=== PATIENT | female | born 1945 | race Caucasian/White ===

== ENCOUNTER → 2018-02-12 15:20 | Outpatient (CLI) | payer MEDICARE, OTHER, SELFPAY | PROVIDERS: Family Provider Family Medicine; PCP Family Medicine; Visit Provider Physician Assistant | DX: R30.0 Dysuria (principal) | CPT/HCPCS: 87086 ==

== ENCOUNTER → 2018-08-02 10:30 | Outpatient (CLI) | payer MEDICARE, OTHER, SELFPAY ==
--- NOTE | 2018-08-02 | DI.MG.S_ITS ---
BILATERAL DIGITAL SCREENING MAMMOGRAM 3D/2D WITH CAD: 08/02/2018 CLINICAL: Routine screening. Family history of breast cancer. Comparison is made to exams dated: 07/09/2017 mammogram, 06/25/2016 mammogram, and 06/24/2015 mammogram - [facility]. There are scattered fibroglandular elements in both breasts. Current study was also evaluated with a Computer Aided Detection (CAD) system. No significant masses, calcifications, or other findings are seen in either breast. There has been no significant interval change. IMPRESSION: NEGATIVE There is no mammographic evidence of malignancy. A 1 year screening mammogram is recommended. NOTE: For mammograms, a report in lay terms will be sent to the patient. Approximately 15% of breast malignancies will not be visualized mammographically. In the management of a palpable breast mass, a negative mammogram must not discourage biopsy of a clinically suspicious lesion. Electronically Signed By: Madeline birmingham/warner:08/03/2018 12:11:23 letter sent: Normal Exam ACR BI-RADS Category 1: Negative 3341F
== END ==
PROVIDERS: Family Provider Family Medicine; PCP Family Medicine; Visit Provider Family Medicine
DX: Z12.31 Encounter for screening mammogram for malignant neoplasm of breast (principal); Z80.3 Family history of malignant neoplasm of breast
CPT/HCPCS: 77063; 77067

== ENCOUNTER → 2018-08-03 08:18 | Outpatient (CLI) | payer MEDICARE, OTHER, SELFPAY ==
[2018-08-03 09:38] LABS: Add Manual Diff / Slide Review NO; Basophils Percent Auto 0.7 % (0-2); Eosinophils Percent Auto 1.3 % (2-4); Hematocrit 42.8 % (36-46); Hemoglobin 14.4 g/dL (12.0-16.0); Lymphocytes Percent Auto 34.2 % (25-40); Mean Corpuscular HGB Conc 33.7 % (30-36); Mean Corpuscular Hemoglobin 28.6 PG (26-34); Mean Corpuscular Volume 84.8 fL (80-100); Monocytes Percent Auto 10.7 % (3-14); Neutrophils Absolute Auto 2600 /uL (3000-5900); Neutrophils Percent Auto 53.1 % (50-75); Platelet Count 256 X10^3/uL (150-400); Red Blood Cell Count 5.04 X10^6/uL (4.0-5.2); Red Cell Distribution Width 14.2 % (11.6-14.8); White Blood Cell Count 4.8 X10^3/uL (4.5-11.0)
[2018-08-03 16:18] LABS: Alanine Aminotransferase 16 IU/L (9-52); Albumin 4.4 g/dL (3.5-5.0); Albumin Globulin Ratio 1.6 (1.0-2.8); Alkaline Phosphatase 87 U/L (38-126); Aspartate Aminotransferase 23 IU/L (14-36); BUN Creatinine Ratio 23.8 (6-22); Bilirubin Total 0.9 mg/dL (0.2-1.3); Blood Urea Nitrogen 19 mg/dL (7-17); Calcium 9.4 mg/dL (8.4-10.2); Carbon Dioxide 27 mmol/L (22-32); Chloride 105 mmol/L (98-107); Cholesterol 183 mg/dL (140-199); Estimated Glomerular Filt Rate > 60.0 mL/min (>60); Globulin 2.7 g/dL (1.7-4.1); Glucose 94 mg/dL (80-110); HDL Cholesterol 47 mg/dL (40-60); HEMOLYSIS < 15 (0-50); LDL Cholesterol Calculated 115 mg/dL (<100); Potassium 3.8 mmol/L (3.4-5.1); Sodium 143 mmol/L (137-145); Total Protein 7.1 g/dL (6.3-8.2); Triglycerides 106 mg/dL (35-150)
== END ==
PROVIDERS: Family Provider Family Medicine; PCP Family Medicine; Visit Provider Family Medicine
DX: G24.9 Dystonia, unspecified (principal); I10 Essential (primary) hypertension
CPT/HCPCS: 36415; 80053; 80061; 85025

== ENCOUNTER → 2019-06-30 13:35 | Outpatient (CLI) | payer MEDICARE, OTHER, SELFPAY ==
--- NOTE | 2019-06-30 13:38 | DI.RAD.S_ITS ---
PROCEDURE: XR RIBS RT MIN 3V W CXR 1V INDICATIONS: Fall, rib contusion, rule out fracture TECHNIQUE: 2 views of the right ribs were acquired, along with a single view chest. COMPARISON: None. FINDINGS: Surgical changes and devices: Bilateral nerve stimulators overlie the chest bilaterally, leading cephalad along the cervical margins directed towards the cranial base.. Bones and chest wall: No fractures or dislocations. No suspicious bony lesions. Overlying soft tissues appear unremarkable. Lungs and pleura: No pleural effusions or pneumothorax. Lungs appear clear. Mediastinum: Mediastinal contours appear normal. Heart size is normal. IMPRESSION: Expected positioning of presumed nerve stimulators over the chest bilaterally, with leads directed cephalad above the uppermost imaging margin. No trauma found. On the oblique views of the ribs mild patient breathing motion is present, blurring quality of the visualization. Delayed plain films may be warranted. Dictated by: Tan Royal M.D. on 06/30/2019 at 14:07 Approved by: Tan Royal M.D. on 06/30/2019 at 14:09
== END ==
PROVIDERS: Family Provider Family Medicine; PCP Family Medicine; Visit Provider Physician Assistant
DX: S20.219A Contusion of unspecified front wall of thorax, initial encounter (principal); R07.81 Pleurodynia; W19.XXXA Unspecified fall, initial encounter; Z96.82 Presence of neurostimulator
CPT/HCPCS: 71101

== ENCOUNTER → 2019-07-18 17:16 | Outpatient (CLI) | payer MEDICARE, OTHER, SELFPAY | PROVIDERS: Family Provider Family Medicine; PCP Family Medicine; Visit Provider Physician Assistant | DX: N30.01 Acute cystitis with hematuria (principal) | CPT/HCPCS: 87077; 87086; 87186 ==

== ENCOUNTER → 2019-08-04 13:40 | Outpatient (CLI) | payer MEDICARE, OTHER, SELFPAY ==
--- NOTE | 2019-08-04 | DI.MG.S_ITS ---
BILATERAL DIGITAL SCREENING MAMMOGRAM 3D/2D WITH CAD: 08/04/2019 CLINICAL: Routine screening. Family history of breast cancer. Comparison is made to exams dated: 08/02/2018 mammogram, 07/09/2017 mammogram, and 06/25/2016 mammogram - [facility]. There are scattered fibroglandular elements in both breasts. Current study was also evaluated with a Computer Aided Detection (CAD) system. No significant masses, calcifications, or other findings are seen in either breast. There has been no significant interval change. IMPRESSION: NEGATIVE There is no mammographic evidence of malignancy. A 1 year screening mammogram is recommended. This exam was interpreted at Station ID: [id number]. NOTE: For mammograms, a report in lay terms will be sent to the patient. Approximately 15% of breast malignancies will not be visualized mammographically. In the management of a palpable breast mass, a negative mammogram must not discourage biopsy of a clinically suspicious lesion. Electronically Signed By: Pascual hernandez/warner:08/07/2019 11:44:40 letter sent: Normal Exam ACR BI-RADS Category 1: Negative 3341F
== END ==
PROVIDERS: PCP Family Medicine; Visit Provider Family Medicine
DX: Z12.31 Encounter for screening mammogram for malignant neoplasm of breast (principal); Z80.3 Family history of malignant neoplasm of breast
CPT/HCPCS: 77063; 77067

== ENCOUNTER → 2019-09-08 12:24 | Outpatient (CLI) | payer MEDICARE, OTHER, SELFPAY ==
[2019-09-08 12:52] LABS: Appearance Urine UA CLEAR; Bilirubin Urine UA NEGATIVE (NEGATIVE); Color Urine UA YELLOW; Glucose Urine UA NEGATIVE (Negative); Ketones Urine UA NEGATIVE (NEGATIVE); Leukocyte Esterase Urine UA NEGATIVE (NEGATIVE); Nitrite Urine UA NEGATIVE (Negative); Occult Blood Urine UA NEGATIVE (Negative); Protein Urine UA NEGATIVE (Negative); Urobilinogen Urine UA 0.2 E.U./dL (0.2)
== END ==
PROVIDERS: PCP Family Medicine; Visit Provider Family Medicine
DX: R32 Unspecified urinary incontinence (principal)
CPT/HCPCS: 81003

== ENCOUNTER → 2019-11-03 15:18 | Outpatient (CLI) | payer MEDICARE, OTHER, SELFPAY ==
--- NOTE | 2019-11-03 15:20 | DI.RAD.S_ITS ---
PROCEDURE: XR HIP W PEL IF DONE RT 2V INDICATIONS: RIGHT Hip pain TECHNIQUE: AP pelvis with lateral view(s) of the right hip(s). COMPARISON: None. FINDINGS: Bones: No fractures or dislocations. Pelvic ring appears intact. No suspicious bony lesions. Soft tissues: The visualized bowel gas pattern is normal. No suspicious soft tissue calcifications. IMPRESSION: 1. No definitive fracture. If clinical symptoms persist or clinical suspicion for pathology is high, advanced imaging such as CT or MRI is suggested for further evaluation. 2. 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 Dictated by: Luis Fernando Seymour M.D. on 11/03/2019 at 17:57 Approved by: Luis Fernando Seymour M.D. on 11/03/2019 at 17:59
== END ==
PROVIDERS: PCP Family Medicine; Referring Provider Family Medicine; Visit Provider Family Medicine
DX: M25.551 Pain in right hip (principal); M16.0 Bilateral primary osteoarthritis of hip; M47.818 Spondylosis without myelopathy or radiculopathy, sacral and sacrococcygeal region
CPT/HCPCS: 73502

== ENCOUNTER → 2019-11-21 09:56 | Outpatient (CLI) | payer MEDICARE, OTHER, SELFPAY ==
[2019-11-21 13:02] LABS: Appearance Urine UA CLOUDY; Bilirubin Urine UA NEGATIVE (NEGATIVE); Color Urine UA YELLOW; Glucose Urine UA NEGATIVE (Negative); Ketones Urine UA NEGATIVE (NEGATIVE); Leukocyte Esterase Urine UA 3+ (NEGATIVE); Nitrite Urine UA NEGATIVE (Negative); Occult Blood Urine UA 2+ (Negative); Protein Urine UA NEGATIVE (Negative); Specific Gravity Urine UA 1.015 (1.000-1.035); Urobilinogen Urine UA 0.2 E.U./dL (0.2)
[2019-11-21 13:10] LABS: pH Urine UA 5.5 (4.5-8.0)
[2019-11-21 13:15] LABS: Bacteria Urine Few (2-10); Culture Indicated Urine Specimen Cultured; RBC Urine 1-5/HPF (0-5/HPF); Squamous Epithelial Cell Urine 1-5 /HPF (0-5/HPF); WBC Urine >100/HPF (0-5/HPF)
== END ==
PROVIDERS: Family Medicine; PCP Family Medicine; Referring Provider Family Medicine; Visit Provider Family Medicine
DX: R39.89 Other symptoms and signs involving the genitourinary system (principal)
CPT/HCPCS: 81001; 87077; 87086; 87186

== ENCOUNTER → 2020-01-17 12:43 | Outpatient (CLI) | payer MEDICARE, OTHER, SELFPAY ==
[2020-01-17 12:50] LABS: Bacteria Urine None Seen; RBC Urine None Seen (0-5/HPF); WBC Urine None Seen (0-5/HPF)
[2020-01-17 13:32] LABS: Appearance Urine UA CLEAR; Bilirubin Urine UA NEGATIVE (NEGATIVE); Color Urine UA YELLOW; Glucose Urine UA NEGATIVE (Negative); Ketones Urine UA TRACE (NEGATIVE); Leukocyte Esterase Urine UA NEGATIVE (NEGATIVE); Nitrite Urine UA NEGATIVE (Negative); Occult Blood Urine UA NEGATIVE (Negative); Protein Urine UA NEGATIVE (Negative); Urobilinogen Urine UA 0.2 E.U./dL (0.2)
[2020-01-17 13:36] LABS: pH Urine UA 6.5 (4.5-8.0)
[2020-01-17 13:45] LABS: Culture Indicated Urine Cult Not Indicated; Urine Comments Microscopic Normal
== END ==
PROVIDERS: PCP Family Medicine; Referring Provider Family Medicine; Visit Provider Family Medicine
DX: R39.89 Other symptoms and signs involving the genitourinary system (principal)
CPT/HCPCS: 81001

== ENCOUNTER → 2020-01-19 13:26 | Outpatient (CLI) | payer MEDICARE, OTHER, SELFPAY ==
[2020-01-19 16:38] LABS: Add Manual Diff / Slide Review NO; Basophils Absolute Auto 0 /uL (0-100); Basophils Percent Auto 0.5 % (0-2); Eosinophils Absolute Auto 0 /uL (0-450); Eosinophils Percent Auto 0.8 % (2-4); Hematocrit 39.5 % (36-46); Hemoglobin 13.4 g/dL (12.0-16.0); Lymphocytes Absolute Auto 1200 /uL (1100-4500); Lymphocytes Percent Auto 19.9 % (25-40); Mean Corpuscular HGB Conc 33.9 % (30-36); Mean Corpuscular Hemoglobin 29.3 PG (26-34); Mean Corpuscular Volume 86.2 fL (80-100); Monocytes Absolute Auto 500 /uL (0-900); Neutrophils Absolute Auto 4200 /uL (1500-7000); Neutrophils Percent Auto 69.8 % (50-75); Platelet Count 268 X10^3/uL (150-400); Red Blood Cell Count 4.58 X10^6/uL (4.0-5.2); White Blood Cell Count 6.1 X10^3/uL (4.5-11.0)
[2020-01-19 17:04] LABS: Alanine Aminotransferase 9 IU/L (<35); Albumin 4.4 g/dL (3.5-5.0); Albumin Globulin Ratio 1.4 (1.0-2.8); Alkaline Phosphatase 85 U/L (38-126); Aspartate Aminotransferase 25 IU/L (14-36); Bilirubin Total 0.4 mg/dL (0.2-1.3); Blood Urea Nitrogen 17 mg/dL (7-17); Calcium 9.5 mg/dL (8.4-10.2); Carbon Dioxide 27 mmol/L (22-32); Chloride 105 mmol/L (98-107); Estimated Glomerular Filt Rate > 60.0 mL/min (>60); Globulin 3.1 g/dL (1.7-4.1); Glucose 98 mg/dL (80-110); HEMOLYSIS < 15 (0-50); Potassium 3.2 mmol/L (3.4-5.1); Sodium 141 mmol/L (137-145); Total Protein 7.5 g/dL (6.3-8.2)
[2020-01-19 17:15] LABS: C-Reactive Protein Quant < 0.5 mg/dL (<1.0)
[2020-01-19 17:37] LABS: TSH w/ Reflex to FT4 2.58 uIU/mL (0.47-4.68)
== END ==
PROVIDERS: PCP Family Medicine; Referring Provider Family Medicine; Visit Provider Family Medicine
DX: R44.1 Visual hallucinations (principal); R30.0 Dysuria
CPT/HCPCS: 36415; 80053; 84443; 85025; 86140; 87086

== ENCOUNTER → 2020-01-31 10:11 | Outpatient (CLI) | payer MEDICARE, OTHER, SELFPAY ==
[2020-01-31 11:43] LABS: BUN Creatinine Ratio 20.8 (6-22); Blood Urea Nitrogen 15 mg/dL (7-17); Calcium 9.7 mg/dL (8.4-10.2); Carbon Dioxide 26 mmol/L (22-32); Chloride 107 mmol/L (98-107); Estimated Glomerular Filt Rate > 60.0 mL/min (>60); Glucose 95 mg/dL (80-110); HEMOLYSIS < 15 (0-50); Sodium 140 mmol/L (137-145)
== END ==
PROVIDERS: PCP Family Medicine; Referring Provider Family Medicine; Visit Provider Family Medicine
DX: E87.6 Hypokalemia (principal)
CPT/HCPCS: 36415; 80048

== ENCOUNTER → 2020-02-02 09:37 | Outpatient (CLI) | payer MEDICARE, OTHER, SELFPAY ==
[2020-02-02 10:58] LABS: BUN Creatinine Ratio 22.4 (6-22); Blood Urea Nitrogen 15 mg/dL (7-17); Calcium 9.3 mg/dL (8.4-10.2); Carbon Dioxide 24 mmol/L (22-32); Chloride 108 mmol/L (98-107); Estimated Glomerular Filt Rate > 60.0 mL/min (>60); Glucose 108 mg/dL (80-110); HEMOLYSIS < 15 (0-50); Potassium 3.7 mmol/L (3.4-5.1); Sodium 140 mmol/L (137-145)
== END ==
PROVIDERS: PCP Family Medicine; Referring Provider Family Medicine; Visit Provider Family Medicine
DX: E87.6 Hypokalemia (principal)
CPT/HCPCS: 36415; 80048

== ENCOUNTER → 2020-02-29 08:40 | Outpatient (CLI) | payer MEDICARE, OTHER, SELFPAY ==
[2020-02-29 10:15] LABS: Blood Urea Nitrogen 21 mg/dL (7-17); Calcium 9.4 mg/dL (8.4-10.2); Carbon Dioxide 26 mmol/L (22-32); Chloride 108 mmol/L (98-107); Estimated Glomerular Filt Rate > 60.0 mL/min (>60); Glucose 108 mg/dL (80-110); HEMOLYSIS < 15 (0-50); Potassium 3.9 mmol/L (3.4-5.1); Sodium 139 mmol/L (137-145)
== END ==
PROVIDERS: PCP Family Medicine; Referring Provider Family Medicine; Visit Provider Family Medicine
DX: E87.6 Hypokalemia (principal)
CPT/HCPCS: 36415; 80048

== ENCOUNTER 2020-07-23 11:37 | Emergency (ER) | payer MEDICARE, OTHER, SELFPAY ==
[2020-07-23] VITALS (10 sets, daily range): BP systolic 93–123; BP diastolic 50–72; PULSE 58–74; RESP 12; TEMP 36.3; O2SAT 95–100; BMI 26.2
--- NOTE | 2020-07-23 12:58 | ED_ITS ---
HPI - Fall General Chief Complaint: Fall Stated Complaint: GLF Time Seen by Provider: 07/23/20 12:58 Source: patient and EMS Mode of arrival: EMS History of Present Illness HPI Narrative: 75-year-old woman with a history of longstanding Parkinson's disease had a ground level fall today and also notes rolling out of bed while trying to get up to go the bathroom last night. She states that she typically does not fall this frequently. She does not have any other specific complaints, no fevers, cough, chills, vomiting, diarrhea, dysuria or flank pain, abdominal pain or obvious worsening of her parkinsonian tremor. Related Data Home Medications Medication Instructions Recorded Confirmed [id number] 25 - 100 tab SEE INSTRUCTIONS #0 03/02/13 07/23/20 [Stalevo 100] rasagiline 1 mg tablet 1 mg PO DAILY 10/17/18 07/23/20 pimavanserin 34 mg capsule 34 mg PO DAILY 07/18/19 07/23/20 Previous Rx's Medication Instructions Recorded potassium chloride 10 mEq See Rx Instructions .ROUTE 06/19/20 tablet,extended release .COMPLEX #60 tab terazosin 2 mg capsule See Rx Instructions .ROUTE 06/19/20 .COMPLEX #90 cap Allergies Allergy/AdvReac Type Severity Reaction Status Date / Time amoxicillin [AMOXICILLIN] Allergy Mild Hives, Verified 07/23/20 11:46 elevated liver enzymes clavulanic acid Allergy Mild Verified 07/23/20 11:46 [CLAVULANIC ACID] vancomycin [VANCOMYCIN] Allergy Mild Severe Verified 07/23/20 11:46 itching Merck self absorbing sutures AdvReac Intermediate Uncoded 07/23/20 11:46 Review of Systems Review of Systems Narrative: Remainder of review of systems including constitutional, ENT, cardiovascular, respiratory, GI, , musculoskeletal, skin, neurologic and psychiatric systems reviewed and are unremarkable except as noted in HPI. Patient History Medical History Parkinson's disease with use of electrical brain stimulation (Chronic ~1997) Speech problem (10/01/14) Family History Brother Age: 64 Hyperlipidemia Hypertension Child Age: 41 Depression Father Parkinsons disease Osteoporosis Grandfather Mental health problem Grandmother Stroke Mother Breast cancer Osteoporosis Hip fracture Heart disease Hypertension High cholesterol Sister Age: 66 Actinic keratosis Osteopenia Sister Age: 76 Hyperlipidemia Hypertension Social History Smoking Status: Never smoker Smoking Status: Never smoker alcohol intake frequency: holidays/special occasions only Substance Use Type: does not use Exam Narrative Exam Narrative: General: Parkinsonian presentation. Small amount of blood to the posterior occiput, able to answer questions HEENT: Moist mucous membranes, normal sclera with reactive pupils, contusion to the left side of the occiput with minor abrasion no laceration, Neck: No JVD, supple, no muscle spasm or midline tenderness Respiratory: Lungs are clear to auscultation, no wheezing no rales no rhonchi. Full and symmetrical air movement Cardiac: Regular rate and rhythm no murmurs no bruits Abdomen: Soft nontender good bowel tones, no flank pain Skin: Warm and dry, no rashes Neurologic: Fill for all tremor bilaterally with slight dysarthria and flat fa cial expression Extremities: No trauma, well perfused Psych: Cooperative, appropriate insight Initial Vital Signs Initial Vital Signs: Vital Signs Temperature 97.3 F L 07/23/20 11:43 Pulse Rate 59 L 07/23/20 11:43 Respiratory Rate 12 07/23/20 11:43 Blood Pressure 123/61 07/23/20 11:43 Pulse Oximetry 97 07/23/20 11:43 Course Orders Ordered: ED Orders 07/23/20 15:10 Complete Blood Count AUTO DIFF Stat Comprehensive Metabolic Panel Stat 07/23/20 15:15 Urinalysis and Microscopic Stat Discontinued Medications Carbidopa/Levodopa (Sinemet 25-100 Tab) 1 each PO NOW ONE Stop: 07/23/20 16:06 Last Admin: 07/23/20 16:13 Dose: 1 each Documented by: Vital Signs Vital signs: Vital Signs - 8 hr 07/23/20 11:43 07/23/20 12:00 07/23/20 12:30 Temperature 97.3 F L Pulse Rate 59 L 60 60 Respiratory Rate 12 Blood Pressure 123/61 95/54 L Pulse Oximetry 97 97 95 07/23/20 13:00 07/23/20 13:01 07/23/20 13:13 Temperature Pulse Rate 61 61 59 L Respiratory Rate Blood Pressure 93/50 L 98/55 L Pulse Oximetry 98 98 98 MDM - Fall Medical Records Attestation: I reviewed the patient's medical records. Lab Data Attestation: I reviewed the patient's lab results. Result diagrams: 07/23/20 15:10 07/23/20 15:10 Labs: Lab Results 07/23/20 07/23/20 07/23/20 Range/Units 15:10 15:10 15:15 WBC 5.8 (4.5-11.0) X10^3/uL RBC 4.60 (4.0-5.2) X10^6/uL Hgb 12.9 (12.0-16.0) g/dL Hct 39.7 (36-46) % MCV 86.2 (80-100) fL MCH 28.0 (26-34) PG MCHC 32.5 (30-36) % RDW 14.1 (11.6-14.8) % Plt Count 249 (150-400) X10^3/uL Neut % (Auto) 63.8 (50-75) % Lymph % (Auto) 23.0 L (25-40) % Callahan % (Auto) 11.3 (3-14) % Eos % (Auto) 1.2 L (2-4) % Baso % (Auto) 0.7 (0-2) % Neut # (Auto) 3700 (9278-9528) /uL Lymph # (Auto) 1300 (3842-2793) /uL Callahan # (Auto) 700 (0-900) /uL Eos # (Auto) 100 (0-450) /uL Baso # (Auto) 0 (0-100) /uL Sodium 137 (137-145) mmol/L Potassium 3.9 (3.4-5.1) mmol/L Chloride 104 (98-107) mmol/L Carbon Dioxide 31 (22-32) mmol/L BUN 17 (7-17) mg/dL Creatinine 0.55 (0.52-1.04) mg/dL Estimated GFR > 60.0 (>60) mL/min BUN/Creatinine Ratio 30.9 H (6-22) Glucose 96 (80-110) mg/dL Calcium 9.1 (8.4-10.2) mg/dL Total Bilirubin 0.5 (0.2-1.3) mg/dL AST 23 (14-36) IU/L ALT < 4 (<35) IU/L Alkaline Phosphatase 86 (38-126) U/L Total Protein 6.6 (6.3-8.2) g/dL Albumin 3.8 (3.5-5.0) g/dL Globulin 2.8 (1.7-4.1) g/dL Albumin/Globulin Ratio 1.4 (1.0-2.8) Urine Color Yellow Urine Appearance Cloudy Urine pH 7.0 (4.5-8.0) Ur Specific [place] 1.015 (1.000-1.035) Urine Protein Negative (Negative) Urine Glucose (UA) Negative (Negative) g/dL Urine Ketones Trace H (NEGATIVE) Urine Occult Blood Negative (Negative) Urine Nitrate Negative (Negative) Urine Bilirubin Negative (NEGATIVE) Urine Urobilinogen 0.2 (0.2) E.U./dL Ur Leukocyte Esterase Negative (NEGATIVE) Urine RBC None seen (0-5/HPF) Urine WBC None seen (0-5/HPF) Amorphous Sediment 2+ Urine Bacteria None seen (None) Ur Culture Indicated? Cult not indicated Urine Dip Bedside Urine Glucose Negative Bedside Urine Bilirubin - Negative Bedside Urine Ketone - Negative Urine Specific [place] 1.020 Bedside Urine Occult Blood - Negative Bedside Urine pH 6.5 Bedside Urine Protein - Negative Bedside Urine Urobilinogen - Negative Bedside Urine Nitrite - Negative Bedside Urine Leukocytes - Negative Esterase MDM Narrative Medical decision making narrative: 75-year-old woman with Parkinson's disease. No evidence of infection or other immediate concerns. She did not injure herself when she rolled out of bed last night. In reaching for a chair and missed judging and then ending up on the floor today she did scratch the back of her head but there was no obvious injury otherwise and no indication for CT scans at this time. She is reassured. Shared results of normal labs as well as urine. At this time she is safe for home discharge Discharge Plan Departure Patient Disposition: Home Clinical Impression: Parkinson's disease with use of electrical brain stimulation Fall Qualifiers: Encounter type: initial encounter Qualified Code(s): W19.XXXA - Unspecified fall, initial encounter Instructions: How to Prevent Falls Activity Restrictions/Additional Instructions: Thank you for coming in today You do have a scratch to the back of your head but nothing that needs stitches and based on your exam and her history there is no indication to do a CT scan at this time either. I did do blood work as well as a urinalysis and did not find any evidence of inf ection generally or evidence of a specific urinary tract infection. Please do continue your usual medications and follow-up with your primary care physician as scheduled. If you develop new or concerning symptoms please feel free to return to the emergency department Prescriptions: No Action Nuplazid 34 mg capsule 34 mg PO DAILY RF: 0 [id number]-[id number] [Stalevo 100] 1 EACH tablet 25 - 100 tab SEE INSTRUCTIONS Qty: 0 RF: 0 potassium chloride 10 mEq tablet extended release See Rx Instructions .ROUTE .COMPLEX Qty: 60 RF: 0 terazosin 2 mg capsule See Rx Instructions .ROUTE .COMPLEX Qty: 90 RF: 0 rasagiline [Azilect] 1 mg tablet 1 mg PO DAILY RF: 0 Referrals: Lashaun Rich DO [Primary Care Provider] -
[2020-07-23 15:21] LABS: Add Manual Diff / Slide Review NO; Basophils Absolute Auto 0 /uL (0-100); Basophils Percent Auto 0.7 % (0-2); Eosinophils Absolute Auto 100 /uL (0-450); Eosinophils Percent Auto 1.2 % (2-4); Hematocrit 39.7 % (36-46); Hemoglobin 12.9 g/dL (12.0-16.0); Lymphocytes Absolute Auto 1300 /uL (1100-4500); Mean Corpuscular HGB Conc 32.5 % (30-36); Mean Corpuscular Volume 86.2 fL (80-100); Monocytes Absolute Auto 700 /uL (0-900); Monocytes Percent Auto 11.3 % (3-14); Neutrophils Absolute Auto 3700 /uL (1500-7000); Neutrophils Percent Auto 63.8 % (50-75); Platelet Count 249 X10^3/uL (150-400); Red Cell Distribution Width 14.1 % (11.6-14.8); White Blood Cell Count 5.8 X10^3/uL (4.5-11.0)
[2020-07-23 15:24] LABS: Bacteria Urine None Seen; RBC Urine None Seen (0-5/HPF); WBC Urine None Seen (0-5/HPF)
[2020-07-23 15:26] LABS: Appearance Urine UA CLOUDY; Bilirubin Urine UA NEGATIVE (NEGATIVE); Color Urine UA YELLOW; Glucose Urine UA NEGATIVE (Negative); Ketones Urine UA TRACE (NEGATIVE); Leukocyte Esterase Urine UA NEGATIVE (NEGATIVE); Nitrite Urine UA NEGATIVE (Negative); Occult Blood Urine UA NEGATIVE (Negative); Protein Urine UA NEGATIVE (Negative); Specific Gravity Urine UA 1.015 (1.000-1.035); Urobilinogen Urine UA 0.2 E.U./dL (0.2)
[2020-07-23 15:35] LABS: Albumin 3.8 g/dL (3.5-5.0); Albumin Globulin Ratio 1.4 (1.0-2.8); Alkaline Phosphatase 86 U/L (38-126); Aspartate Aminotransferase 23 IU/L (14-36); BUN Creatinine Ratio 30.9 (6-22); Bilirubin Total 0.5 mg/dL (0.2-1.3); Blood Urea Nitrogen 17 mg/dL (7-17); Calcium 9.1 mg/dL (8.4-10.2); Carbon Dioxide 31 mmol/L (22-32); Chloride 104 mmol/L (98-107); Estimated Glomerular Filt Rate > 60.0 mL/min (>60); Globulin 2.8 g/dL (1.7-4.1); Glucose 96 mg/dL (80-110); HEMOLYSIS < 15 (0-50); Potassium 3.9 mmol/L (3.4-5.1); Sodium 137 mmol/L (137-145); Total Protein 6.6 g/dL (6.3-8.2)
[2020-07-23 15:38] LABS: Alanine Aminotransferase < 4 IU/L (<35)
[2020-07-23 15:49] LABS: Amorphous Sediment Urine 2+; Culture Indicated Urine Cult Not Indicated
[2020-07-23] MEDS: CARBIDOPA-LEVODOPA 25/100 TABLET 1 EACH PO (16:13)
== END 2020-07-23 16:56 | disposition home or self-care (01) ==
PROVIDERS: Emergency Provider Emergency Medicine; PCP Family Medicine
DX: G20 Parkinson's disease (principal); W19.XXXA Unspecified fall, initial encounter
CPT/HCPCS: 80053; 81001; 81003; 85025; 99283

== ENCOUNTER → 2020-08-21 09:37 | Outpatient (CLI) | payer MEDICARE, OTHER, SELFPAY ==
[2020-08-21 10:55] LABS: Blood Urea Nitrogen 16 mg/dL (7-17); Calcium 9.2 mg/dL (8.4-10.2); Carbon Dioxide 32 mmol/L (22-32); Chloride 104 mmol/L (98-107); Estimated Glomerular Filt Rate > 60.0 mL/min (>60); Glucose 104 mg/dL (80-110); HEMOLYSIS < 15 (0-50); Potassium 3.5 mmol/L (3.4-5.1); Sodium 141 mmol/L (137-145)
== END ==
PROVIDERS: PCP Family Medicine; Referring Provider Family Medicine; Visit Provider Family Medicine
DX: E87.6 Hypokalemia (principal)
CPT/HCPCS: 36415; 80048

== ENCOUNTER → 2020-09-11 15:48 | Outpatient (CLI) | payer MEDICARE, OTHER, SELFPAY ==
--- NOTE | 2020-09-11 | DI.MG.S_ITS ---
BILATERAL DIGITAL SCREENING MAMMOGRAM 3D/2D WITH CAD: 09/11/2020 CLINICAL: Routine screening. Family history of breast cancer. Comparison is made to exams dated: 08/04/2019 mammogram, 08/02/2018 mammogram, and 07/09/2017 mammogram - [facility]. There are scattered fibroglandular elements in both breasts. Current study was also evaluated with a Computer Aided Detection (CAD) system. No significant masses, calcifications, or other findings are seen in either breast. There has been no significant interval change. IMPRESSION: NEGATIVE There is no mammographic evidence of malignancy. A 1 year screening mammogram is recommended. This exam was interpreted at Station ID: [id number]. NOTE: For mammograms, a report in lay terms will be sent to the patient. Approximately 15% of breast malignancies will not be visualized mammographically. In the management of a palpable breast mass, a negative mammogram must not discourage biopsy of a clinically suspicious lesion. Electronically Signed By: Juanita el/warner:09/11/2020 16:56:14 letter sent: Normal Exam ACR BI-RADS Category 1: Negative 3341F
== END ==
PROVIDERS: PCP Family Medicine; Referring Provider Family Medicine; Visit Provider Family Medicine
DX: Z12.31 Encounter for screening mammogram for malignant neoplasm of breast (principal); Z80.3 Family history of malignant neoplasm of breast
CPT/HCPCS: 77063; 77067

== ENCOUNTER → 2020-10-22 09:28 | Outpatient (CLI) | payer MEDICARE, OTHER, SELFPAY ==
[2020-10-22 12:03] LABS: Bilirubin Urine UA NEGATIVE (NEGATIVE); Color Urine UA YELLOW; Glucose Urine UA NEGATIVE (Negative); Ketones Urine UA NEGATIVE (NEGATIVE); Leukocyte Esterase Urine UA NEGATIVE (NEGATIVE); Nitrite Urine UA NEGATIVE (Negative); Occult Blood Urine UA NEGATIVE (Negative); Protein Urine UA NEGATIVE (Negative); Specific Gravity Urine UA >=1.030 (1.000-1.035); Urobilinogen Urine UA 0.2 E.U./dL (0.2)
[2020-10-22 12:06] LABS: Appearance Urine UA CLOUDY; pH Urine UA 5.5 (4.5-8.0)
== END ==
PROVIDERS: PCP Family Medicine; Referring Provider Family Medicine; Visit Provider Specialist
DX: N39.0 Urinary tract infection, site not specified (principal)
CPT/HCPCS: 81003